=== PATIENT | female | born 2000 | race Two or more races ===

== ENCOUNTER 2024-07-05 21:43 | Emergency (ER) | payer MEDICAID, SELFPAY ==
--- NOTE | ~2024-07-05 | XR_ITS ---
EXAMINATION: XR CHEST CLINICAL INFORMATION: Chest pain COMPARISON: None available. TECHNIQUE: 2 views of the chest were obtained. FINDINGS: No significant abnormality is noted involving the heart, lungs, mediastinum, bony thorax or soft tissues. XR/XR chest 2V IMPRESSION: Unremarkable chest examination. Electronically signed by: Loi Sparrow MD 07/05/2024 10:08 PM EDT RP
[2024-07-05 21:46] VITALS: BP 152/90; PULSE 100; RESP 17; TEMP 37.2; O2SAT 100; BMI 34.4
--- NOTE | 2024-07-05 21:49 | ECG_ITS ---
Test Reason : cp Blood Pressure : / mmHG Vent. Rate : 093 BPM Atrial Rate : 093 BPM P-R Int : 156 ms QRS Dur : 076 ms QT Int : 340 ms P-R-T Axes : 055 029 035 degrees QTc Int : 422 ms Normal sinus rhythm with sinus arrhythmia Normal ECG No previous ECGs available Referred By: Generic ED Physician Electronically Signed By:MARCIO MARTINEZ
[2024-07-05 22:04] LABS: MANUAL DIFF FLAG NO
[2024-07-05 22:07] LABS: Basophils Percent Auto 0.6 % (0-2); Eosinophils Percent Auto 0.6 % (0-4); Hematocrit 36.6 % (37.0-47.0); Hemoglobin 12.2 g/dl (12.0-16.0); Imm Gran Abs Auto 0.01 X10*3/uL (0.00-0.03); Imm Gran Pct Auto 0.1 % (0.0-0.4); Lymphocytes Absolute Auto 2.3 X10*3/uL (1.2-4.9); Lymphocytes Percent Auto 32.4 % (20-40); Mean Corpuscular HGB Conc 33.3 g/dl (31.0-35.0); Mean Corpuscular Hemoglobin 26.1 pg (27.0-33.0); Mean Corpuscular Volume 78.4 fL (80.0-98.0); Mean Platelet Volume 10.7 fL (9.4-12.3); Monocytes Absolute Auto 0.5 X10*3/uL (0.1-1.2); Monocytes Percent Auto 6.6 % (2-11); Neutrophils Absolute Auto 4.3 x10*3/uL (2.0-8.3); Neutrophils Percent Auto 59.7 % (45-73); Platelet Count 268 X10*3/uL (160-400); Red Blood Count 4.67 X10*6/uL (4.20-5.50); Red Cell Distribution Width 15.1 % (11.0-16.0); White Blood Count 7.1 X10*3/uL (4.8-10.8)
[2024-07-05 22:18] LABS: Anion Gap 12 (12-20); Blood Urea Nitrogen 14 mg/dL (9-16); Calcium 9.3 mg/dL (8.4-10.2); Carbon Dioxide 21 mmol/L (22-29); Chloride 110 mmol/L (96-108); Creatinine Clr Calc Pharmacy 107.1; Estimated Glomerular Filt Rate > 60; Glucose Random 125 mg/dL (60-115); Potassium 3.5 mmol/L (3.3-5.1); Sodium 139 mmol/L (135-145)
[2024-07-05 22:27] LABS: Troponin-I High Sensitivity < 2.7 ng/L (<3.5-17.0)
[2024-07-05 23:25] VITALS: BP 105/68; PULSE 70; RESP 18; TEMP 37.1; O2SAT 100
--- NOTE | 2024-07-05 23:46 | ED_ITS ---
HPI - Chest Pain General Chief Complaint: Chest Pain Stated Complaint: SOB, lung pain Time Seen by Provider: 07/05/24 23:28 Source: patient Mode of arrival: ambulatory Limitations: no limitations History of Present Illness ED Provider: angelia HPI narrative: Patient complaining of pain after vaping to the left chest which increases on deep inspiration does have off and on left-sided chest pain with vaping in the past occasional cough no fever no chills no shortness a breath Related Data Previous Rx's ?Medication ?Instructions ?Recorded ibuprofen 600 mg tablet 600 mg PO Q6H PRN fever or pain 07/05/24 #20 tabs Allergies Allergy/AdvReac Type Severity Reaction Status Date / Time No Known Allergies Allergy Verified 07/05/24 21:49 Review of Systems 2 Review of Systems: Yes all other systems are reviewed and are negative [facility] Social History Social History Advance Directives: No Advance Directives Information Provided: Yes Do you have a plan to hurt others: No Plan Physical Exam 2 Vital Signs: Vital Signs: Last Vital Signs Temp 98.8 F 07/05/24 23:25 Pulse 70 07/05/24 23:25 Resp 18 07/05/24 23:25 BP 105/68 07/05/24 23:25 Pulse Ox 100 07/05/24 23:25 O2 Del Method Room Air 07/05/24 23:25 BMI result Body Mass Index 34.4 Appearance: Alert. Oriented X3. No acute distress. ENT: Pharynx normal. Oral Mucosa moist Neck: Normal inspection. Neck supple. CVS: Normal heart rate and rhythm. Pulses normal. Respiratory: No respiratory distress. Equal air entry bilateral, no wheezing/rales/rhonchi Skin: Skin warm and dry. Normal skin color. Normal skin turgor. Extremities: No lower extremity edema. Neuro: Oriented X 3. Medical Decision Making Medical Decision Making MDM Narrative: Patient with left-sided chest pain after vaping heart score of 0 chest x-ray negative for acute cardiac enzymes negative EKG without ischemic changes pain is more pleural then cardiac advised not to vape will give ibuprofen for pain Lab Data [facility] Lab Attestation statement: I reviewed the patient's lab results. 07/05/24 21:58 07/05/24 21:58 Labs: Lab Results 07/05/24 Range/Units 21:58 WBC 7.1 (4.8-10.8) X10*3/uL RBC 4.67 (4.20-5.50) X10*6/uL Hgb 12.2 (12.0-16.0) g/dl Hct 36.6 L (37.0-47.0) % MCV 78.4 L (80.0-98.0) fL MCH 26.1 L (27.0-33.0) pg MCHC 33.3 (31.0-35.0) g/dl RDW 15.1 (11.0-16.0) % Plt Count 268 (160-400) X10*3/uL MPV 10.7 (9.4-12.3) fL Immature Gran % (Auto) 0.1 (0.0-0.4) % Neut % (Auto) 59.7 (45-73) % Lymph % (Auto) 32.4 (20-40) % Stone % (Auto) 6.6 (2-11) % Eos % (Auto) 0.6 (0-4) % Baso % (Auto) 0.6 (0-2) % Lymph # (Auto) 2.3 (1.2-4.9) X10*3/uL Stone # (Auto) 0.5 (0.1-1.2) X10*3/uL Eos # (Auto) 0.0 (0.0-0.4) X10*3/uL Baso # (Auto) 0.0 (0.0-0.2) X10*3/uL Abs Immat Gran (auto) 0.01 (0.00-0.03) X10*3/uL Absolute Neuts (auto) 4.3 (2.0-8.3) x10*3/uL Absolute Nucleated RBC 0.000 (0.0-0.012) X10*3/uL Nucleated RBC % (auto) 0.0 (0.0-0.2) /100WBC Sodium 139 (135-145) mmol/L Potassium 3.5 (3.3-5.1) mmol/L Chloride 110 H (96-108) mmol/L Carbon Dioxide 21 L (22-29) mmol/L Anion Gap 12 (12-20) BUN 14 (9-16) mg/dL Creatinine 0.77 (0.5-1.4) mg/dL Estim Creat Clear Calc 107.1 Estimated GFR > 60 Random Glucose 125 H (60-115) mg/dL Calcium 9.3 (8.4-10.2) mg/dL Troponin I High Sens < 2.7 (<3.5-17.0) ng/L Independent Interpretation I performed an independent interpretation of an: EKG Interpretation: Normal sinus rhythm heart rate 93 beats per minute normal interval normal axis no acute STT wave changes no acute ischemia Discharge Plan Discharge Clinical Impression: E-cigarette or vaping product use associated lung injury (EVALI) Patient Disposition: Home, Self-Care Instructions: EVALI (E-cigarette or Vaping-Associated Lung Injury) (ED) Additional Instructions: Stop vaping Ibuprofen for pain as needed Prescriptions: New ibuprofen 600 mg tablet 600 mg PO Q6H PRN (Reason: fever or pain) Qty: 20 0RF Print Language: Polish
[2024-07-06] MEDS: Ibuprofen 600 MG TABLET PO (00:54)
[2024-07-06 00:55] VITALS: BP 112/74; PULSE 81; RESP 16; O2SAT 99
[2024-07-06 01:13] VITALS: BP 112/74; PULSE 81; RESP 16; TEMP 36.9; O2SAT 99
== END 2024-07-06 00:57 | disposition home or self-care (01) ==
PROVIDERS: Emergency Provider Internal Medicine
DX: U07.0 Vaping-related disorder (principal); R07.9 Chest pain, unspecified
CPT/HCPCS: 36415; 71046; 80048; 84484; 85025; 93005; 99283; 99284